=== PATIENT | male | born 1995 | race Caucasian/White ===

== ENCOUNTER 2020-06-24 08:18 | Emergency (ER) | payer OTHER ==
[2020-06-24] MEDS ORDERED: BUPIVACAINE 0.5% PF 10 ML VIAL ONE (09:00)
--- NOTE | 2020-06-24 09:03 | RAD REPORT ---
EXAM DESCRIPTION: RAD - Hand Right 3 View - 06/24/2020 8:56 am CLINICAL HISTORY: Right hand pain status post injury FINDINGS: Comminuted fracture mid to distal aspect of the fifth distal phalanx with displacement of fracture fragments. No dislocation is seen Laceration wall soft tissue adjacent to the fourth proximal phalanx. Small densities within the soft tissues of the fourth and fifth phalanx may represent foreign bodies
--- NOTE | 2020-06-24 11:49 | EDPHYS ---
Physician Documentation [facility] Name: Jorgito Jones Age: 24 yrs Sex: Male : 1995 Arrival Date: 06/24/2020 Time: 08:21 Bed 7 Private MD: ED Physician Jose Juan Ramirez HPI: 06/24 09:04 This 24 yrs old Male presents to ER via Ambulatory with complaints of jr8 Laceration To Hand. 09:04 The patient has a laceration occurred at work. The laceration(s) is(are) located on the jr8 right hand. Onset: The symptoms/episode began/occurred acutely, today. Associated signs and symptoms: The patient has no apparent associated signs or symptoms. The patient has not experienced similar symptoms in the past. The patient has not recently seen a physician. Patient while at work had hand crushed by dozer. Complains of pain to 4th and 5th digits with laceration to proximal 4th digit . Historical: - Allergies: 08:32 No Known Allergies; hb - Home Meds: 08:32 None [Active]; hb - PMHx: 08:32 None; hb - PSHx: 08:32 None; hb - Immunization history:: Last tetanus immunization: up to date. - Social history:: Smoking status: Patient denies any tobacco usage or history of. ROS: 09:04 Eyes: Negative for injury, pain, redness, and discharge, ENT: Negative for injury, jr8 pain, and discharge, Neck: Negative for injury, pain, and swelling, Cardiovascular: Negative for chest pain, palpitations, and edema, Respiratory: Negative for shortness of breath, cough, wheezing, and pleuritic chest pain, Abdomen/GI: Negative for abdominal pain, nausea, vomiting, diarrhea, and constipation, Back: Negative for injury and pain, Neuro: Negative for headache, weakness, numbness, tingling, and seizure. 09:04 MS/extremity: Positive for decreased range of motion, laceration, pain, tenderness, of the right hand. 09:04 Skin: Positive for laceration(s). Exam: 09:04 Constitutional: This is a well developed, well nourished patient who is awake, alert, jr8 and in no acute distress. Cardiovascular: Regular rate and rhythm with a normal S1 and S2. No gallops, murmurs, or rubs. Normal PMI, no JVD. No pulse deficits. Respiratory: Lungs have equal breath sounds bilaterally, clear to auscultation and percussion. No rales, rhonchi or wheezes noted. No increased work of breathing, no retractions or nasal flaring. Skin: Warm, dry with normal turgor. Normal color with no rashes, no lesions, and no evidence of cellulitis. Neuro: Awake and alert, GCS 15, oriented to person, place, time, and situation. Cranial nerves II-XII grossly intact. Motor strength 5/5 in all extremities. Sensory grossly intact. Cerebellar exam normal. Normal gait. 09:04 Musculoskeletal/extremity: Extremities: grossly normal except: noted in the 4th digit right hand: Patient has proximal medial laceration to 4th digit, noted in the 5th digit : pain, tenderness, Tip of 5th digit. laceration to lateral aspect of digit noted , ROM: intact in all extremities, full active range of motion, full passive range of motion, Circulation is intact in all extremities. Sensation intact. Vital Signs: 08:27 BP 120 / 77; Pulse 72; Resp 16; Temp 97.8; Pulse Ox 100% ; Weight 74.84 kg; Height 6 hb ft. (182.88 cm); Pain 8/10; 08:27 Body Mass Index 22.38 (74.84 kg, 182.88 cm) hb Procedures: 11:13 Nerve block: (digital) of dorsal aspect of proximal phalanx of right ring finger jr8 Medication: Marcaine 0.5%, Amount: 4 mls were injected, Effect: the patient has resolution of the pain, Set up for procedure. Performed by Jamir CROCKER Patient tolerated well. 11:44 Splinting: Splint applied to right hand using Orthoglass splint, applied by tech. jr8 Examined by ut, post splint application: neurovascular intact, 2+ distal pulses palpable, brisk capillary refill noted, Patient tolerated well, ulnar gutter applied to affected fingers. Laceration: 11:13 Wound Repair of 5cm ( 2.0in ) subcutaneous laceration to right hand. Irregularly jr8 shaped.. Minimal bleeding noted.. Distal neuro/vascular/tendon intact. Anesthesia: Digital block administered with 4 mls of 0.25% marcaine. Wound prep: Extensive cleansing with betadine, Wound irrigation with saline by me, Particulate matter removal of dirt, Wound explored extensively, Copious irrigation. Skin closed with 5 4-0 Prolene using horizontal mattress sutures and sterile technique. Patient tolerated well. MDM: 08:26 Patient medically screened. jr8 11:16 ED course: Patient will be sent to hand surgeon for further f/u with laceration care on jr8 the 4th digit which was closed. 5th digit as well but cannot be closed and will have to be healed secondarily. Patient will be on Abx. Knows to come back if fingers become numb or pain increased or looses color to distal digits. 11:44 Data reviewed: vital signs, nurses notes, radiologic studies, plain films. Data jr8 interpreted: Pulse oximetry: on room air is 100 %. Interpretation: normal. Counseling: I had a detailed discussion with the patient and/or guardian regarding: the historical points, exam findings, and any diagnostic results supporting the discharge/admit diagnosis, radiology results, the need for outpatient follow up, a hand specialist, to return to the emergency department if symptoms worsen or persist or if there are any questions or concerns that arise at home. 06/24 08:35 Order name: Hand Right 3 View XRAY; Complete Time: 09:04 jr8 06/24 08:35 Order name: Wound Care: Clean wound and soak in betadine.; Complete Time: 10:19 jr8 Administered Medications: 10:15 Drug: Marcaine (0.25 %) 1 vials Route: Infiltration; iw Disposition: 16:13 Co-signature as Attending Physician, Jose Juan Ramirez MD I agree with the assessment and ross plan of care. Disposition: 06/24/20 11:48 Discharged to Home. Impression: Laceration with foreign body of finger without damage to nail, Displaced fracture of distal phalanx of finger. - Condition is Stable. - Discharge Instructions: Laceration Care, Adult. - Prescriptions for Bactrim DS 800- 160 mg Oral Tablet - take 1 tablet by ORAL route every 12 hours for 10 days; 20 tablet. Tylenol- Codeine #3 300-30 mg Oral Tablet - take 2 tablets by ORAL route every 6 hours As needed; 20 tablet. - Medication Reconciliation Form, Thank You Letter, Antibiotic Education, Prescription Opioid Use, Work release form form. - Follow up: Pavan Ibanez MD; When: 2 - 3 days; Reason: Wound Recheck, Recheck today's complaints, Continuance of care, Re-evaluation by your physician. - Problem is new. - Symptoms have improved. Signatures: Dispatcher [employer] EDJose Juan Schreiber MD MD cha Williams, Irene, RN RN Jamir Loaiza PA PA jr8 Kelsea Ojeda RN RN Corrections: (The following items were deleted from the chart) 11:15 09:04 Musculoskeletal/extremity: Extremities: grossly normal except: noted in the 4th jr8 digit right hand: Patient has proximal medial laceration to 4th digit, noted in the 5th digit : pain, tenderness, Tip of 5th digit , ROM: intact in all extremities, full active range of motion, full passive range of motion, Circulation is intact in all extremities. Sensation intact. jr8 12:14 11:48 06/24/2020 11:48 Discharged to Home. Impression: Laceration with foreign body of hb finger without damage to nail; Displaced fracture of distal phalanx of finger. Condition is Stable. Forms are Medication Reconciliation Form, Thank You Letter, Antibiotic Education, Prescription Opioid Use. Follow up: Pavan Ibanez; When: 2 - 3 days; Reason: Wound Recheck, Recheck today's complaints, Continuance of care, Re-evaluation by your physician. Problem is new. Symptoms have improved. jr8
--- NOTE | 2020-06-24 11:49 | ER ---
Nurse's Notes [facility] Name: Jorgito Jones Age: 24 yrs Sex: Male : 1995 Arrival Date: 06/24/2020 Time: 08:21 Bed 7 Private MD: Diagnosis: Laceration with foreign body of finger without damage to nail;Displaced fracture of distal phalanx of finger Presentation: 06/24 08:27 Chief complaint: Crush injury to right 4th and 5th fingers after dropping back end of hb dozer fell on hand wlite working at [email or web address]. Coronavirus screen: At this time, the client does not indicate any symptoms associated with coronavirus-19. Ebola Screen: No symptoms or risks identified at this time. Complicating Factors: dirty - landfill material. Initial Sepsis Screen: Does the patient meet any 2 criteria? No. Patient's initial sepsis screen is negative. Does the patient have a suspected source of infection? No. Patient's initial sepsis screen is negative. Risk Assessment: Do you want to hurt yourself or someone else? Patient reports no desire to harm self or others. Onset of symptoms was June 24, 2020. 08:27 Method Of Arrival: Ambulatory hb 08:27 Acuity: WANDA 3 hb Triage Assessment: 12:12 General: Appears in no apparent distress. Behavior is calm. iw 12:13 Injury Description: Laceration. hb Historical: - Allergies: 08:32 No Known Allergies; hb - Home Meds: 08:32 None [Active]; hb - PMHx: 08:32 None; hb - PSHx: 08:32 None; hb - Immunization history:: Last tetanus immunization: up to date. - Social history:: Smoking status: Patient denies any tobacco usage or history of. Screenin:32 Abuse screen: Denies threats or abuse. Denies injuries from another. Nutritional hb screening: No deficits noted. Tuberculosis screening: No symptoms or risk factors identified. Fall Risk None identified. Assessment: 08:30 General: Appears in no apparent distress. comfortable, Behavior is calm, cooperative. iw Pain: Complains of pain in right hand. Neuro: Level of Consciousness is awake, alert, obeys commands, Oriented to person, place, time, situation, Moves all extremities. Full function. Cardiovascular: Patient's skin is warm and dry. Respiratory: Respiratory effort is even, unlabored, Respiratory pattern is regular. Derm: Skin is intact, is healthy with good turgor. Musculoskeletal: Range of motion: intact in all extremities. Injury Description: Laceration sustained to dorsal aspect of proximal phalanx of right ring finger and right hand is contaminated, jagged, 2.6 to 7.5 cm long, is bleeding a small amount. 09:07 Reassessment: right hand placed in NS/Betadine solution, pt tolerating well, unable to iw tolerate irrigation. 10:55 Reassessment: Patient appears in no apparent distress at this time. Jamir CROCKER remains at bedside for laceration repair. Vital Signs: 08:27 BP 120 / 77; Pulse 72; Resp 16; Temp 97.8; Pulse Ox 100% ; Weight 74.84 kg; Height 6 hb ft. (182.88 cm); Pain 8/10; 08:27 Body Mass Index 22.38 (74.84 kg, 182.88 cm) hb ED Course: 08:21 Patient arrived in ED. bp1 08:26 Jamir Weston PA is PHCP. jr8 08:26 Jose Juan Ramirez MD is Attending Physician. jr8 08:31 Triage completed. hb 08:32 Arm band placed on. hb 08:32 Patient has correct armband on for positive identification. Bed in low position. Call hb light in reach. 08:38 Anna Bridges, RN is Primary Nurse. iw 08:56 Hand Right 3 View XRAY In Process Unspecified. EDMS 11:47 Pavan Ibanez MD is Referral Physician. jr8 12:13 No provider procedures requiring assistance completed. Patient did not have IV access hb during this emergency room visit. Administered Medications: 10:15 Drug: Marcaine (0.25 %) 1 vials Route: Infiltration; iw Outcome: 11:48 Discharge ordered by . jr8 12:13 Discharged to home ambulatory. hb 12:13 Condition: stable 12:13 Discharge instructions given to patient, Instructed on discharge instructions, follow up and referral plans. medication usage, wound care, Demonstrated understanding of instructions, follow-up care, medications, wound care, Prescriptions given X 2. 12:14 Patient left the ED. hb Signatures: Dispatcher [employer] EDMS Anna Bridges RN RN Jamir Weston PA PA jr8 Kelsea Ojeda, RN RN hb Chasity Metz bp1
[2020-06-24 12:19] VITALS: BP 120/77; TEMP 97.8; O2SAT 100
== END 2020-06-24 12:14 | disposition home or self-care (01) ==
LOC: ER 08:18
PROC: 0JQJ0ZZ Repair Right Hand Subcutaneous Tissue and Fascia, Open Approach (ICD-10-PCS; principal; 2020-06-24)
DX: S62.634A Displaced fracture of distal phalanx of right ring finger, initial encounter for closed fracture (principal); W31.89XA Contact with other specified machinery, initial encounter; Y93.9 Activity, unspecified; Y92.89 Other specified places as the place of occurrence of the external cause; Y99.8 Other external cause status
CPT/HCPCS: 64450; 99283